=== PATIENT | female | born 2000 ===

== ENCOUNTER 2020-07-18 09:17 | Emergency (ER) | payer SELFPAY ==
[2020-07-18 09:31] VITALS: BP 145/78
[2020-07-18] MEDS ORDERED: methylPREDNISolone Sod Succinate 125 MG/2 ML INJ IM ONE (09:35)
[2020-07-18] MEDS ORDERED: IPRATROPIUM/ALBUTEROL SULFATE 3 ML AMPUL.NEB IH ONE (09:35)
--- NOTE | 2020-07-18 09:35 | Emergency Department Report ---
- General Chief Complaint: Upper Respiratory Infection Stated Complaint: CHEST DISCOMFORT/COUGH/WHEEZING Time Seen by Provider: 07/18/20 09:27 Source: patient Mode of arrival: Ambulatory Limitations: No Limitations - History of Present Illness Initial Comments: 19-year-old female with a history of tobacco use but no other significant past history presents to the ER with complaint of a cough. Patient states that she has been coughing intermittently for about a month. She states that she decided come to the ER today because her mom told her that she needs to get checked out. She states that the cough is productive. She reports occasional shortness of breath and occasional wheezing. She reports anterior chest pain with cough and she reports associated rhinorrhea and nasal congestion. She denies any fever or chills. She denies any apparent ill contacts or recent travel. MD Complaint: cough -: month(s) (6-month) - Related Data Previous Rx's Medication Instructions Recorded Last Taken Type Albuterol Mdi (or & Nicu Only) 2 puff IH QID PRN #8.5 gram 07/18/20 Unknown Rx [ProAir HFA Inhaler] guaiFENesin/DEXTROMETHORPHAN 1 each PO Q12HR PRN #20 tab.er.12h 07/18/20 Unknown Rx [Mucinex DM ER 600-30 mg TAB] predniSONE [Deltasone] 50 mg PO QDAY #5 tab 07/18/20 Unknown Rx Allergies Allergy/AdvReac Type Severity Reaction Status Date / Time No Known Allergies Allergy Unverified 07/18/20 09:27 ED Review of Systems ROS: Stated complaint: CHEST DISCOMFORT/COUGH/WHEEZING Other details as noted in HPI Comment: All other systems reviewed and negative ENT: denies: ear pain, throat pain Respiratory: cough, shortness of breath, wheezing Gastrointestinal: denies: abdominal pain, nausea, diarrhea Genitourinary: denies: urgency, dysuria, discharge Skin: denies: rash, lesions Neurological: denies: headache, weakness, paresthesias Psychiatric: denies: anxiety, depression Hematological/Lymphatic: denies: easy bleeding, easy bruising ED Past Medical Hx - Past Medical History Previous Medical History?: No - Surgical History Past Surgical History?: No - Social History Smoking Status: Current Every Day Smoker Substance Use Type: None - Medications Home Medications: Home Medications Medication Instructions Recorded Confirmed Last Taken Type Albuterol Mdi (or & Nicu Only) 2 puff IH QID PRN #8.5 gram 07/18/20 Unknown Rx [ProAir HFA Inhaler] guaiFENesin/DEXTROMETHORPHAN 1 each PO Q12HR PRN #20 tab.er.12h 07/18/20 Unknown Rx [Mucinex DM ER 600-30 mg TAB] predniSONE [Deltasone] 50 mg PO QDAY #5 tab 07/18/20 Unknown Rx ED Physical Exam - General Limitations: No Limitations General appearance: alert, in no apparent distress - Head Head exam: Present: atraumatic, normocephalic, normal inspection - Eye Eye exam: Present: normal appearance, PERRL, EOMI Pupils: Present: normal accommodation - Respiratory Respiratory exam: Present: wheezes, rhonchi. Absent: respiratory distress - Cardiovascular Cardiovascular Exam: Present: normal rhythm, tachycardia, normal heart sounds - Neurological Exam Neurological exam: Present: alert, oriented X3, CN II-XII intact, normal gait - Psychiatric Psychiatric exam: Present: normal affect, normal mood - Skin Skin exam: Present: intact ED Course Vital Signs 07/18/20 07/18/20 09:29 11:20 Temperature 99.4 F Pulse Rate 109 H 83 Respiratory 18 Rate Blood Pressure 145/78 O2 Sat by Pulse 96 99 Oximetry ED Medical Decision Making - Radiology Data Radiology results: report reviewed Patient: VIKKI JAMES MR#: [id number] : 2000 Acct:[id number] Age/Sex: 19 / F ADM Date: 07/18/20 Loc: ED Attending Dr: Ordering Physician: CAL PHILIP Date of Service: 07/18/20 Procedure(s): XR chest routine 2V Accession Number(s): [id number] cc: CAL PHILIP Fluoro Time In Minutes: XR chest routine 2V INDICATION / CLINICAL INFORMATION: Cough COMPARISON: None available. FINDINGS: SUPPORT DEVICES: None. HEART / MEDIASTINUM: No significant abnormality. LUNGS / PLEURA: Lungs are clear. Costophrenic sulci are sharp. No pneumothorax. ADDITIONAL FINDINGS: No significant additional findings. IMPRESSION: 1. No acute findings. Signer Name: Jose Chavez MD Signed: 07/18/2020 11:01 AM Workstation Name: [id number] Transcribed By: JERRY Dictated By: Jose Chavez MD Electronically Authenticated By: Jose Chavez MD Signed Date/Time: 07/18/20 1101 DD/ 1100 TD/TT: - Medical Decision Making 19-year-old female with a history of tobacco use but no other significant past history presents to the ER with complaint of a cough. Patient states that she has been coughing intermittently for about a month. She states that she decided come to the ER today because her mom told her that she needs to get checked out. She states that the cough is productive. She reports occasional shortness of breath and occasional wheezing. She reports anterior chest pain with cough and she reports associated rhinorrhea and nasal congestion. She denies any fever or chills. She denies any apparent ill contacts or recent travel. 11:29 CXR negative. Repeat VS show improved HR without intervention and she is not hypoxic and afebrile. The patient has been resting comfortably, is alert and in no distress. The patient has normal mental status and is neurologically intact. The patient appears well and there is no significant dehydration. There is no respiratory distress and no signs of systemic toxicity. The history, exam, diagnostic testing and current condition do not demonstrate an infectious process such as meningitis, severe pneumonia, retropharyngeal abscess, epiglottitis, sepsis or other serious bacterial infection requiring further testing, treatment, consultation or admission at this time. The patient's condition is stable and appropriate for discharge. The patient will pursue further outpatient evaluation with the primary care physician. Critical care attestation.: If time is entered above; I have spent that time in minutes in the direct care of this critically ill patient, excluding procedure time. ED Disposition Clinical Impression: Bronchitis Disposition: DC-01 TO HOME OR SELFCARE Is pt being admited?: No Does the pt Need Aspirin: No Condition: Stable Instructions: Chronic Bronchitis, Adult, Chronic Bronchitis (ED) Additional Instructions: Take the prednisone, use albuterol MDI and take the cough medication as prescribed. It is important that you try to stop smoking as this can be contributing to your symptoms. Follow-up with the primary care doctor listed on your discharge instructions next week. Return to the ER if your symptoms changes or worsens in any way. Prescriptions: predniSONE [Deltasone] 50 mg PO QDAY #5 tab guaiFENesin/DEXTROMETHORPHAN [Mucinex DM ER 600-30 mg TAB] 1 each PO Q12HR PRN #20 tab.er.12h PRN Reason: Cough Albuterol Mdi (or & Nicu Only) [ProAir HFA Inhaler] 2 puff IH QID PRN #8.5 gram PRN Reason: Shortness Of Breath Referrals: JASWANT HARO MD [Staff Physician] - 3-5 Days Time of Disposition: 11:25
[2020-07-18] MEDS ORDERED: ACETAMINOPHEN 500 MG TAB PO ONE (09:36)
--- NOTE | 2020-07-18 11:05 | XRay Report ---
XR chest routine 2V INDICATION / CLINICAL INFORMATION: Cough COMPARISON: None available. FINDINGS: SUPPORT DEVICES: None. HEART / MEDIASTINUM: No significant abnormality. LUNGS / PLEURA: Lungs are clear. Costophrenic sulci are sharp. No pneumothorax. ADDITIONAL FINDINGS: No significant additional findings. IMPRESSION: 1. No acute findings. Signer Name: Jose Chavez MD Signed: 07/18/2020 11:01 AM Workstation Name: [id number]
[2020-07-18] MEDS ORDERED: predniSONE 20 MG TAB PO ONE (11:14)
== END 2020-07-18 11:35 | disposition home or self-care (01) ==
LOC: ED 09:17
DX: J40 Bronchitis, not specified as acute or chronic (principal); F17.200 Nicotine dependence, unspecified, uncomplicated; Z79.899 Other long term (current) drug therapy
CPT/HCPCS: 71046; 99283; J7512